=== PATIENT | female | born 1985 | race Caucasian/White ===

== ENCOUNTER → 2016-12-02 | Outpatient (CLI) | payer BC ==
[~2016-12-02] MED LIST: AMPH10TA2 PO; AMPH20CA3 PO; CLON1TAB3 PO; ESCI1TAB10 PO; GABA600T PO; HYDR50CA2 PO; MULT-222 PO; SULF500T36 PO; SUMA100T16 PO
== END | disposition home or self-care (01) ==
LOC: C.PAPS 10:07
PROVIDERS: ATTEND Obstetrics & Gynecology
DX: D06.9 Carcinoma in situ of cervix, unspecified (principal)

== ENCOUNTER → 2017-02-17 | Outpatient (CLI) | payer BC ==
[2017-02-17 14:58] LABS: BASO % 0.7 %; BASO ABS # 0.04 K/uL (0-0.2); COMPLETE YES; EOS % 8.2 %; HEMATOCRIT 40.1 % (37-47); IG% 0.2 %; LYMPH % 37.9 %; LYMPH ABS # 2.28 K/uL (1.2-3.4); MEAN CELL VOLUME 94.8 fL (80-100); MEAN CORPUSCULAR HEMOGLOBIN 31.4 pg (25-34); MEAN CORPUSCULAR HGB CONC 33.2 g/dl (32-36); MEAN PLATELET VOLUME 9.9 fL (7.4-10.4); MONO % 15.3 %; NEUT % 37.7 %; PLATELET COUNT 223 K/uL (130-400); RED BLOOD COUNT 4.23 M/uL (4.2-5.4); WHITE BLOOD COUNT 6.01 K/uL (4.8-10.8)
[2017-02-17 15:22] LABS: ALT/SGPT 19 U/L (12-78); CREATININE 0.66 mg/dl (0.60-1.20)
[2017-02-17 15:25] LABS: ALKALINE PHOSPHATASE 63 U/L (45-117); AST/SGOT 16 U/L (15-37)
== END | disposition home or self-care (01) ==
LOC: C.LAB1850 14:27
PROVIDERS: ATTEND Internal Medicine Rheumatology
DX: K52.839 Microscopic colitis, unspecified (principal); Z79.899 Other long term (current) drug therapy; M79.673 Pain in unspecified foot